=== PATIENT | female | born 2000 | race Caucasian/White ===

== ENCOUNTER 2020-10-14 11:41 | Outpatient (REF) | payer OTHER, SELFPAY ==
[2020-10-14 12:42] LABS: Hematocrit 43.1 % (37-47); Hemoglobin 14.3 g/dl (12.0-16.0); Mean Corpuscular HGB Conc 33.2 g/dl (31.0-35.0); Mean Corpuscular Hemoglobin 29.1 pg (27.0-33.0); Mean Corpuscular Volume 87.8 fL (80-98); Mean Platelet Volume 10.2 fL (9.4-12.3); Platelet Count 367 X10*3/uL (160-400); Red Blood Count 4.91 X10*6/uL (4.20-5.50); Red Cell Distribution Width 13.2 % (11.0-16.0); White Blood Count 11.4 X10*3/uL (4.8-10.8)
[2020-10-14 13:27] LABS: Alanine Aminotransferase 20 U/L (0-31); Albumin Level 4.1 g/dL (3.5-5.0); Alkaline Phosphatase 80 U/L (39-117); Anion Gap 13 (12-20); Aspartate Amino Transferase 15 U/L (5-31); Bilirubin Total 0.5 mg/dL (0.0-1.0); Blood Urea Nitrogen 9 mg/dL (9-16); Carbon Dioxide 25 mmol/L (22-29); Chloride 104 mmol/L (96-108); Cholesterol 178 mg/dL; Estimated Glomerular Filt Rate > 60; Glucose Fasting 84 mg/dL (60-99); HDL Cholesterol 45 mg/dL; LDL Cholesterol Calculated 102 mg/dl; Potassium 4.3 mmol/L (3.3-5.1); Sodium 138 mmol/L (135-145); Total Protein 6.8 g/dL (6.5-8.0); Triglycerides 158 mg/dL
[2020-10-14 13:38] LABS: TSH reflex Free T4 0.88 uIU/mL (0.32-4.0)
[2020-10-14 13:53] LABS: Estimated Average Glucose 97 mg/dL
== END 2020-10-14 11:42 | disposition home or self-care (01) ==
LOC: HO.LAB 11:41
PROVIDERS: PCP Physician Assistant; Visit Provider Physician Assistant
DX: I10 Essential (primary) hypertension (principal); E66.01 Morbid (severe) obesity due to excess calories; Z68.43 Body mass index [BMI] 50.0-59.9, adult; Z13.1 Encounter for screening for diabetes mellitus; Z13.220 Encounter for screening for lipoid disorders; Z13.29 Encounter for screening for other suspected endocrine disorder
CPT/HCPCS: 36415; 80053; 80061; 83036; 84443; 85027

== ENCOUNTER 2021-03-07 13:44 | Outpatient (REF) | payer OTHER, SELFPAY ==
[2021-03-08 06:08] LABS: CT PCR NOT DETECTED (Not Detect.); NG PCR NOT DETECTED (Not Detect.)
[2021-03-08 08:40] LABS: BV Int Neg Control Negative (Negative); BV Int Pos Control Positive (Positive)
== END 2021-03-07 13:45 | disposition home or self-care (01) ==
LOC: HO.LAB 13:44
PROVIDERS: Visit Provider Advanced Practice Midwife
DX: Z01.419 Encounter for gynecological examination (general) (routine) without abnormal findings (principal); R10.2 Pelvic and perineal pain; L70.9 Acne, unspecified; L68.0 Hirsutism; E66.01 Morbid (severe) obesity due to excess calories; Z68.43 Body mass index [BMI] 50.0-59.9, adult; Z20.2 Contact with and (suspected) exposure to infections with a predominantly sexual mode of transmission; Z79.899 Other long term (current) drug therapy
CPT/HCPCS: 87480; 87491; 87510; 87591; 87660; 88142

== ENCOUNTER → 2021-05-25 14:07 | Outpatient (BNVA) | payer OTHER, SELFPAY | PROVIDERS: Visit Provider Advanced Practice Midwife ==

== ENCOUNTER → 2021-06-21 08:58 | Outpatient (BNVA) | payer SELFPAY | PROVIDERS: PCP Physician Assistant; Referring Provider Physician Assistant; Visit Provider Nurse Practitioner Family | DX: G47.33 Obstructive sleep apnea (adult) (pediatric) (principal); G25.81 Restless legs syndrome; E66.01 Morbid (severe) obesity due to excess calories; Z68.43 Body mass index [BMI] 50.0-59.9, adult; Z91.013 Allergy to seafood; Z79.899 Other long term (current) drug therapy | CPT/HCPCS: 99202 ==

== ENCOUNTER 2021-09-01 10:53 | Outpatient (REF) | payer SELFPAY ==
[2021-09-01 13:16] LABS: Binax Internal Control QC Valid; Binax Now Covid-19 Ag Negative (Negative)
== END 2021-09-01 10:54 | disposition home or self-care (01) ==
LOC: HO.LAB 10:53
PROVIDERS: Visit Provider Internal Medicine
DX: Z20.822 Contact with and (suspected) exposure to COVID-19 (principal)
CPT/HCPCS: 36415; C9803

== ENCOUNTER 2022-10-10 15:51 | Outpatient (REF) | payer OTHER, SELFPAY ==
[2022-10-10 16:02] LABS: MANUAL DIFF FLAG NO
[2022-10-10 16:10] LABS: Basophils Absolute Auto 0.1 X10*3/uL (0.0-0.2); Basophils Percent Auto 0.7 % (0-2); Eosinophils Absolute Auto 0.3 X10*3/uL (0.0-0.4); Eosinophils Percent Auto 1.9 % (0-4); Hematocrit 41.7 % (37.0-47.0); Hemoglobin 14.2 g/dl (12.0-16.0); Imm Gran Abs Auto 0.08 X10*3/uL (0.00-0.03); Imm Gran Pct Auto 0.6 % (0.0-0.4); Lymphocytes Absolute Auto 4.2 X10*3/uL (1.2-4.9); Lymphocytes Percent Auto 30.6 % (20-40); Mean Corpuscular HGB Conc 34.1 g/dl (31.0-35.0); Monocytes Absolute Auto 0.9 X10*3/uL (0.1-1.2); Monocytes Percent Auto 6.8 % (2-11); Neutrophils Absolute Auto 8.2 x10*3/uL (2.0-8.3); Neutrophils Percent Auto 59.4 % (45-73); Platelet Count 373 X10*3/uL (160-400); Red Blood Count 4.74 X10*6/uL (4.20-5.50); Red Cell Distribution Width 12.5 % (11.0-16.0); White Blood Count 13.8 X10*3/uL (4.8-10.8)
[2022-10-10 16:39] LABS: Alanine Aminotransferase 18 U/L (0-31); Albumin Level 4.2 g/dL (3.5-5.0); Alkaline Phosphatase 74 U/L (39-117); Anion Gap 15 (12-20); Aspartate Amino Transferase 19 U/L (5-31); Bilirubin Total 0.4 mg/dL (0.0-1.0); Blood Urea Nitrogen 15 mg/dL (9-16); Calcium 9.4 mg/dL (8.4-10.2); Carbon Dioxide 23 mmol/L (22-29); Chloride 103 mmol/L (96-108); Cholesterol 180 mg/dL; Estimated Glomerular Filt Rate > 60; Glucose Fasting 113 mg/dL (60-99); Glucose Random 114 mg/dL (60-115); HDL Cholesterol 51 mg/dL; LDL Cholesterol Calculated 107 mg/dl; Potassium 3.8 mmol/L (3.3-5.1); Sodium 137 mmol/L (135-145); Triglycerides 112 mg/dL
[2022-10-10 16:53] LABS: TSH reflex Free T4 1.12 uIU/mL (0.32-4.0)
== END 2022-10-10 15:52 | disposition home or self-care (01) ==
LOC: HO.LAB 15:51
PROVIDERS: PCP Physician Assistant; Visit Provider Nurse Practitioner Family
DX: Z13.220 Encounter for screening for lipoid disorders (principal); Z13.1 Encounter for screening for diabetes mellitus; R42 Dizziness and giddiness
CPT/HCPCS: 36415; 80048; 80053; 80061; 84443; 85025

== ENCOUNTER → 2022-11-23 15:18 | Outpatient (REF) | payer OTHER, SELFPAY | LOC: HO.SL 15:18 | PROVIDERS: PCP Physician Assistant; Visit Provider Physician Assistant | DX: G47.33 Obstructive sleep apnea (adult) (pediatric) (principal) | CPT/HCPCS: 95806 ==

== ENCOUNTER 2023-10-27 21:38 | Emergency (ER) | payer OTHER, SELFPAY ==
--- NOTE | ~2023-10-27 | XR_ITS ---
EXAMINATION: XR CHEST CLINICAL INFORMATION: Chest pain COMPARISON: None available. TECHNIQUE: Frontal view of the chest was obtained. FINDINGS: No significant abnormality is noted involving the heart, lungs, mediastinum, bony thorax or soft tissues. XR/XR chest 1V IMPRESSION: Unremarkable examination.
--- NOTE | 2023-10-27 21:40 | ECG_ITS ---
Test Reason : CHEST PAIN Blood Pressure : / mmHG Vent. Rate : 076 BPM Atrial Rate : 076 BPM P-R Int : 132 ms QRS Dur : 074 ms QT Int : 370 ms P-R-T Axes : 048 033 031 degrees QTc Int : 416 ms Normal sinus rhythm Normal ECG When compared with ECG of 30-SEP-2015 21:54, No significant change was found Referred By: Generic ED Physician Electronically Signed By:CELESTINA HSIEH
[2023-10-27 21:51] VITALS: BP 131/79; PULSE 75; RESP 16; TEMP 36.9; O2SAT 99; BMI 48.2
[2023-10-27 22:09] LABS: MANUAL DIFF FLAG NO
[2023-10-27 22:10] LABS: Basophils Absolute Auto 0.1 X10*3/uL (0.0-0.2); Basophils Percent Auto 0.8 % (0-2); Eosinophils Absolute Auto 0.2 X10*3/uL (0.0-0.4); Eosinophils Percent Auto 1.1 % (0-4); Hematocrit 43.1 % (37.0-47.0); Hemoglobin 14.8 g/dl (12.0-16.0); Imm Gran Abs Auto 0.11 X10*3/uL (0.00-0.03); Imm Gran Pct Auto 0.8 % (0.0-0.4); Lymphocytes Absolute Auto 3.8 X10*3/uL (1.2-4.9); Lymphocytes Percent Auto 29.1 % (20-40); Mean Corpuscular HGB Conc 34.3 g/dl (31.0-35.0); Mean Corpuscular Hemoglobin 31.2 pg (27.0-33.0); Mean Corpuscular Volume 90.7 fL (80.0-98.0); Mean Platelet Volume 9.3 fL (9.4-12.3); Monocytes Absolute Auto 1.1 X10*3/uL (0.1-1.2); Monocytes Percent Auto 8.4 % (2-11); Neutrophils Absolute Auto 7.9 x10*3/uL (2.0-8.3); Neutrophils Percent Auto 59.8 % (45-73); Platelet Count 364 X10*3/uL (160-400); Red Blood Count 4.75 X10*6/uL (4.20-5.50); Red Cell Distribution Width 12.4 % (11.0-16.0); White Blood Count 13.1 X10*3/uL (4.8-10.8)
[2023-10-27 22:23] LABS: Alanine Aminotransferase 139 U/L (0-31); Albumin Level 4.1 g/dL (3.5-5.0); Alkaline Phosphatase 80 U/L (39-117); Anion Gap 12 (12-20); Aspartate Amino Transferase 68 U/L (5-31); Bilirubin Total 0.2 mg/dL (0.0-1.0); Blood Urea Nitrogen 16 mg/dL (9-16); Calcium 9.5 mg/dL (8.4-10.2); Carbon Dioxide 24 mmol/L (22-29); Chloride 105 mmol/L (96-108); Creatinine Clr Calc Pharmacy 160.3; Estimated Glomerular Filt Rate > 60; Glucose Random 84 mg/dL (60-115); Potassium 4.1 mmol/L (3.3-5.1); Sodium 137 mmol/L (135-145); Total Protein 7.3 g/dL (6.5-8.0)
[2023-10-27 22:31] LABS: Troponin-I High Sensitivity < 2.7 ng/L (<3.5-17.0)
--- NOTE | 2023-10-27 23:51 | ED_ITS ---
HPI - Chest Pain General Chief Complaint: Chest Pain Stated Complaint: chest pain,sob Time Seen by Provider: 10/27/23 23:48 Source: patient Mode of arrival: ambulatory Limitations: no limitations History of Present Illness HPI narrative: Patient history of bipolar disorder anxiety depression no history of coronary artery disease in the family nonsmoker not on any control pills complaining of pain in the left side of the chest for last 24 hours off and on sharp in character increases on movement no shortness of breath no leg swelling or calf pain no cough Related Data Previous Rx's Medication Instructions Recorded venlafaxine 75 mg capsule,extended 75 mg PO QAM 90 days #90 caps 11/09/22 release 24 hr oxcarbazepine 300 mg tablet 300 mg PO BID 90 days #180 tabs 09/25/23 venlafaxine 150 mg 150 mg PO DAILY 90 days #90 caps 09/25/23 capsule,extended release 24 hr Allergies Allergy/AdvReac Type Severity Reaction Status Date / Time SHELLFISH Allergy Unknown SWELLING Uncoded 10/27/23 21:57 Review of Systems 2 Review of Systems: Yes all other systems are reviewed and are negative [facility] Past Medical History Medical History Obesity, morbid, BMI 50 or higher Surgical History No history of previous surgery Family History Family History Father High blood pressure Mother Fibromyalgia Social History Social History Household Members: Significant Other Housing: House Alcohol intake: current Alcohol intake frequency: a few times a month Patient Tobacco Use Status: Never used Tobacco e-Cigarette/Vaping Use: Never Used Advance Directives: No Advance Directives Information Provided: No Current occupational status: employed Current occupation: [employer] Gender identity: Female Cognitive needs: No Hearing needs: No Vision needs: No Physical Exam 2 Vital Signs: Vital Signs: Last Vital Signs Temp 98.4 F 10/27/23 21:51 Pulse 75 10/27/23 21:51 Resp 16 10/27/23 21:51 BP 131/79 10/27/23 21:51 Pulse Ox 99 10/27/23 21:51 O2 Del Method Room Air 10/27/23 21:51 BMI result Body Mass Index 48.2 Appearance: Alert. Oriented X3. No acute distress. Obese ENT: Pharynx normal. Oral Mucosa moist Neck: Normal inspection. Neck supple. CVS: Normal heart rate and rhythm. Pulses normal. Left chest wall tenderness+ Respiratory: No respiratory distress. Equal air entry bilateral, no wheezing/rales/rhonchi Abdomen: Soft and nontender. Bowel sounds are present, Skin: Skin warm and dry. Normal skin color. Normal skin turgor. Extremities: No lower extremity edema. No calf tenderness Neuro: Oriented X 3. Medical Decision Making Medical Decision Making [facility] Narrative: Patient with low risk for ACS normal EKG normal cardiac enzymes atypical chest pain likely musculoskeletal Differential Diagnosis Differential Diagnoses: The differential diagnosis associated with the presentation includes ACS/costochondritis/PE/pneumonia/atypical chest pain Lab Data [facility] Lab Attestation statement: I reviewed the patient's lab results. 10/27/23 22:04 10/27/23 22:04 Labs: Lab Results 10/27/23 Range/Units 22:04 WBC 13.1 H (4.8-10.8) X10*3/uL RBC 4.75 (4.20-5.50) X10*6/uL Hgb 14.8 (12.0-16.0) g/dl Hct 43.1 (37.0-47.0) % MCV 90.7 (80.0-98.0) fL MCH 31.2 (27.0-33.0) pg MCHC 34.3 (31.0-35.0) g/dl RDW 12.4 (11.0-16.0) % Plt Count 364 (160-400) X10*3/uL MPV 9.3 L (9.4-12.3) fL Immature Gran % (Auto) 0.8 H (0.0-0.4) % Neut % (Auto) 59.8 (45-73) % Lymph % (Auto) 29.1 (20-40) % [place] % (Auto) 8.4 (2-11) % Eos % (Auto) 1.1 (0-4) % Baso % (Auto) 0.8 (0-2) % Lymph # (Auto) 3.8 (1.2-4.9) X10*3/uL [place] # (Auto) 1.1 (0.1-1.2) X10*3/uL Eos # (Auto) 0.2 (0.0-0.4) X10*3/uL Baso # (Auto) 0.1 (0.0-0.2) X10*3/uL Abs Immat Gran (auto) 0.11 H (0.00-0.03) X10*3/uL Absolute Neuts (auto) 7.9 (2.0-8.3) x10*3/uL Absolute Nucleated RBC 0.000 (0.0-0.012) X10*3/uL Nucleated RBC % (auto) 0.0 (0.0-0.2) /100WBC Sodium 137 (135-145) mmol/L Potassium 4.1 (3.3-5.1) mmol/L Chloride 105 (96-108) mmol/L Carbon Dioxide 24 (22-29) mmol/L Anion Gap 12 (12-20) BUN 16 (9-16) mg/dL Creatinine 0.76 (0.5-1.4) mg/dL Estim Creat Clear Calc 160.3 Estimated GFR > 60 Random Glucose 84 (60-115) mg/dL Calcium 9.5 (8.4-10.2) mg/dL Total Bilirubin 0.2 (0.0-1.0) mg/dL AST 68 H (5-31) U/L ALT 139 H (0-31) U/L Alkaline Phosphatase 80 (39-117) U/L Troponin I High Sens < 2.7 (<3.5-17.0) ng/L Total Protein 7.3 (6.5-8.0) g/dL Albumin 4.1 (3.5-5.0) g/dL Independent Interpretation I performed an independent interpretation of an: EKG Interpretation: Normal sinus rhythm heart rate 76 beats per minute normal interval normal axis no acute ST T wave changes no acute ischemia Discharge Plan Discharge Clinical Impression: Atypical chest pain Patient Disposition: Home, Self-Care Instructions: Noncardiac Chest Pain (ED) Additional Instructions: Your chest pain is likely musculoskeletal Take Tylenol/Motrin for pain Follow with PCP if any concerns Prescriptions: No Action oxcarbazepine 300 mg tablet 300 mg PO BID 90 Days Qty: 180 2RF venlafaxine 150 mg capsule,extended release 24hr 150 mg PO DAILY 90 Days Qty: 90 2RF venlafaxine 75 mg capsule,extended release 24hr 75 mg PO QAM 90 Days Qty: 90 2RF Rx Instructions: 1 weeks worth needs appointment Interventions: ED Discharge Assessment Last Done: 10/28/23 00:31 Discharge Date/Time: 10/28/23 00:32
--- NOTE | 2023-10-28 00:30 | PC.NURSE ---
pt left without this rn obgyn and without discharge papers. provider aware.
== END 2023-10-28 00:32 | disposition home or self-care (01) ==
PROVIDERS: Emergency Provider Internal Medicine; PCP Physician Assistant
DX: R07.89 Other chest pain (principal); F41.9 Anxiety disorder, unspecified; Z79.899 Other long term (current) drug therapy
CPT/HCPCS: 36415; 71045; 80053; 84484; 85025; 93005; 99283

== ENCOUNTER → 2023-10-27 21:40 | Outpatient (BNV) | payer OTHER, SELFPAY | PROVIDERS: Emergency Provider Internal Medicine; PCP Physician Assistant; Visit Provider Internal Medicine | DX: R07.9 Chest pain, unspecified (principal) | CPT/HCPCS: 93010 ==

== ENCOUNTER 2024-02-14 08:04 | Outpatient (AMB) | payer OTHER, SELFPAY ==
[2024-02-14 08:07] VITALS: BP 128/80; PULSE 81; TEMP 36.4; O2SAT 98
--- NOTE | 2024-02-14 08:07 | AM.OFFWIN_ITS ---
Intake Vital Signs 02/14/24 08:07 Height 5 ft 6 in BP 128/80 Blood Pressure Location Rt brachial Position Sitting Pulse 81 Pulse Source Pulse Oximeter Temp 97.5 F Temp Source Oral Pulse Oximetry (%) 98 Oxygen Delivery Method Room Air Intake Visit Reasons: EP Severe Left ear pain, sore throat Intake Note: pt is here for severe left ear pain has been sick for 2 weeks and the ear pain just started Patient Tobacco Use Status: Never used Tobacco Allergies SHELLFISH Allergy (Unknown, Uncoded 02/14/24 08:07) SWELLING Do you need a note to return to daycare/school/sports/work: No HPI HPI Comments History of Present Illness Details Patient is a 23-year-old female complaining of left ear pain x1 week. She states she did have a cold a couple of weeks ago and she is feeling better overall but she is stuck with this residual left ear pain and reduced hearing. She states she took some Excedrin last night which did not really help. She also endorses a mild sore throat and seasonal allergies but states her allergies have not really bothered her this year. She denies any fever. [facility] Medical History Obesity, morbid, BMI 50 or higher Surgical History No history of previous surgery Family History Father High blood pressure Mother Fibromyalgia Social History Household Members: Significant Other Housing: House Alcohol intake: current Alcohol intake frequency: a few times a month Patient Tobacco Use Status: Never used Tobacco e-Cigarette/Vaping Use: Never Used Current occupational status: employed Current occupation: [employer] Gender identity: Female Cognitive needs: No Hearing needs: No Vision needs: No Female Reproductive History Menstrual Age of Menarche: 9 Review of Systems Const All systems reviewed & are unremarkable except as noted in HPI and below Physical Exam Vital Signs: Last Vital Signs Temp 97.5 F 02/14/24 08:07 Pulse 81 02/14/24 08:07 BP 128/80 02/14/24 08:07 Pulse Ox 98 02/14/24 08:07 Oxygen Delivery Method Room Air 06/20/24 08:07 Const General: cooperative, healthy appearing, comfortable and no acute distress Orientation/consciousness: patient oriented x3 Limitations: no limitations HEENT Head: Yes normal to inspection Ears: external ears normal and TM abnormal (bilaterally) dull, erythematous and with loss of landmarks General nose exam: Normal external nose present, Normal nares present and No nasal discharge present Face and sinus: Yes normal facial exam and Yes sinuses nontender Mouth: Normal oral and palatal mucosa present and moist mucous membranes Throat: Yes tonsils normal (Slightly enlarged), Yes uvula midline and Yes posterior oropharynx abnormal (Erythematous) Eyes General: appearance normal, both eyes and all related structures Neck Neck: Yes normal visual inspection Resp Effort & Inspection: normal respiratory effort, able to speak in complete sentences, Actively coughing, no respiratory distress, not tachypneic, no tripod positioning and no use of accessory muscles Auscultation: clear to auscultation bilaterally Cardio Rate: regular rate Rhythm: regular rhythm Heart sounds: normal S1 and S2 Skin General skin exam: no rashes or lesions noted Neuro General: patient oriented x3 Extrem General: Yes normal to inspection and Yes no clubbing, cyanosis or edema Assessment & Plan Assessment & Plan (1) Otitis media: Code(s): H66.90 - Otitis media, unspecified, unspecified ear Qualifiers: Otitis media type: unspecified Laterality: left Qualified Code(s): H66.92 - Otitis media, unspecified, left ear Plan: abx sent to pharmacy; recommended if reduced hearing continues to follow up with hearing test Plan See above Medications: New amoxicillin 875 mg PO Q12H 10 tabs 0RF Coding Level of Care Code Est Pt Level 3 (90528) Diagnoses Left otitis media, unspecified otitis media type H66.92 Otitis media type: unspecified Laterality: left
== END 2024-02-14 08:46 | disposition home or self-care (01) ==
PROVIDERS: PCP Physician Assistant; Visit Provider Physician Assistant
DX: H66.92 Otitis media, unspecified, left ear (principal)
CPT/HCPCS: 99213

== ENCOUNTER 2024-03-01 09:08 | Outpatient (AMB) | payer OTHER, SELFPAY ==
--- NOTE | 2024-03-01 09:17 | MHC.OFFWIV ---
Intake Vital Signs 03/01/24 09:19 Height 5 ft 6 in Weight 311 lb BMI 50.2 BP 118/82 Blood Pressure Location Rt radial Position Sitting Pulse 80 Pulse Source Pulse Oximeter Temp 98.1 F Temp Source Oral Pulse Oximetry (%) 98 Oxygen Delivery Method Room Air Intake Visit Reasons: EP fell on rt foot/pain in foot Intake Note: pt here c/o RT foot pain due to fall on Patient Tobacco Use Status: Never used Tobacco Allergies SHELLFISH Allergy (Unknown, Uncoded 03/01/24 09:19) SWELLING Do you need a note to return to daycare/school/sports/work: No HPI EP fell on rt foot/pain in foot HPI Details Patient is a 23-year-old female comes to the walk-in clinic complaining of pain to the right foot after she fell 2 days ago when she slipped on dirt, which rolled her right ankle underneath her, and she fell on her foot. She reports the symptoms increased since then, as she has been continuing to work which requires ambulating. She did take Aleve this morning for the pain. She did not notice any apparent swelling, or deformity. She reports no weakness, numbness or tingling to the extremity. She also did scrape up her left elbow when she fell, but reports no issues with use of the arm. [facility] Medical History Obesity, morbid, BMI 50 or higher Surgical History No history of previous surgery Family History Father High blood pressure Mother Fibromyalgia Social History Household Members: Significant Other Housing: House Alcohol intake: current Alcohol intake frequency: a few times a month Patient Tobacco Use Status: Never used Tobacco e-Cigarette/Vaping Use: Never Used Current occupational status: employed Current occupation: [employer] Gender identity: Female Cognitive needs: No Hearing needs: No Vision needs: No Female Reproductive History Menstrual Age of Menarche: 9 Review of Systems Const All systems reviewed & are unremarkable except as noted in HPI and below Physical Exam Vital Signs: Last Vital Signs Temp 98.1 F 03/01/24 09:19 Pulse 80 03/01/24 09:19 BP 118/82 03/01/24 09:19 Pulse Ox 98 03/01/24 09:19 Oxygen Delivery Method Room Air 03/01/24 09:19 BMI result Body Mass Index 50.2 Extrem Other: Right ankle with mild edema to the lateral malleolar aspect of the right ankle, and anterior midfoot tenderness to palpation. No gross ecchymosis, abrasions or lacerations overlying. Patient able to tolerate weight with ambulation very mildly antalgic gait. Full range of motion strength to right ankle and foot, neurovascularly intact distally Assessment & Plan Assessment & Plan (1) Right ankle sprain: Code(s): S93.401A - Sprain of unspecified ligament of right ankle, initial encounter Qualifiers: Encounter type: initial encounter Involved ligament of ankle: anterior talofibular ligament Qualified Code(s): S93.491A - Sprain of other ligament of right ankle, initial encounter (2) Abrasion of left elbow: Code(s): S50.312A - Abrasion of left elbow, initial encounter Qualifiers: Encounter type: initial encounter Qualified Code(s): S50.312A - Abrasion of left elbow, initial encounter Plan Patient with apparent ankle sprain and foot sprain after twisting mechanism of injury, and mild crush due to her body weight. She was put into Alvin wrap and air cast to the right foot and ankle. I advised that she elevate, rest, ice every 2-4 hours, use the compression when not icing, and take [id number] anti-inflammatories for a few days to reduce the swelling and pain. She should use the Aircast with ambulation. She can weightbear as tolerated otherwise. She should follow up with primary care or orthopedist if symptoms persist after 2 weeks or so. Patient aware of this, as well as her mother who was present. Orders: Orders XR ankle RT 2V 03/01/24 M79.673 - Pain in unspecified foot XR foot RT min 3V 03/01/24 M79.673 - Pain in unspecified foot Coding Level of Care Code Est Pt Level 4 (54183) Diagnoses Sprain of anterior talofibular ligament of right ankle, initial encounter S93.491A Encounter type: initial encounter Involved ligament of ankle: anterior talofibular ligament Abrasion of left elbow, initial encounter S50.312A Encounter type: initial encounter
[2024-03-01 09:19] VITALS: BP 118/82; PULSE 80; TEMP 36.7; O2SAT 98; BMI 50.2
== END 2024-03-01 10:31 | disposition home or self-care (01) ==
PROVIDERS: PCP Physician Assistant; Visit Provider Physician Assistant Medical
DX: S93.491A Sprain of other ligament of right ankle, initial encounter (principal); S50.312A Abrasion of left elbow, initial encounter
CPT/HCPCS: 99051; 99214

== ENCOUNTER 2024-03-01 09:57 | Outpatient (REF) | payer OTHER, SELFPAY ==
--- NOTE | ~2024-03-01 | XR_ITS ---
EXAMINATION: XR ankle RT 2V, XR foot RT min 3V CLINICAL INFORMATION: Reason for Exam M79.673 - Pain in unspecified foot COMPARISON: None. TECHNIQUE: AP, lateral, and oblique views of the foot and 2 views of the ankle FINDINGS: No acute fracture or dislocation. Mild osteoarthritis of the foot with Achilles tendon enthesopathy, plantar calcaneal spurring and a small dorsal midfoot osteophyte. Soft tissue swelling about the foot and ankle. No tibiotalar joint effusion. XR/XR foot RT min 3V IMPRESSION: 1. Soft tissue swelling about the foot and ankle without appreciable underlying acute fracture or dislocation. 2. Mild osteoarthritis of the foot.
--- NOTE | ~2024-03-01 | XR_ITS ---
EXAMINATION: XR ankle RT 2V, XR foot RT min 3V CLINICAL INFORMATION: Reason for Exam M79.673 - Pain in unspecified foot COMPARISON: None. TECHNIQUE: AP, lateral, and oblique views of the foot and 2 views of the ankle FINDINGS: No acute fracture or dislocation. Mild osteoarthritis of the foot with Achilles tendon enthesopathy, plantar calcaneal spurring and a small dorsal midfoot osteophyte. Soft tissue swelling about the foot and ankle. No tibiotalar joint effusion. XR/XR ankle RT 2V IMPRESSION: 1. Soft tissue swelling about the foot and ankle without appreciable underlying acute fracture or dislocation. 2. Mild osteoarthritis of the foot.
== END 2024-03-01 09:58 | disposition home or self-care (01) ==
LOC: HO.HMGCX 09:57
PROVIDERS: Visit Provider Physician Assistant Medical
DX: M79.671 Pain in right foot (principal)
CPT/HCPCS: 73600; 73630

== ENCOUNTER 2024-03-19 21:35 | Emergency (ER) | payer OTHER, SELFPAY ==
[2024-03-19 21:47] VITALS: BP 128/75; PULSE 95; RESP 18; TEMP 36.9; O2SAT 97; BMI 48.4
[2024-03-19 22:04] LABS: MANUAL DIFF FLAG NO
[2024-03-19 22:05] LABS: Basophils Absolute Auto 0.1 X10*3/uL (0.0-0.2); Basophils Percent Auto 0.5 % (0-2); Eosinophils Percent Auto 0.3 % (0-4); Hematocrit 42.8 % (37.0-47.0); Hemoglobin 14.8 g/dl (12.0-16.0); Imm Gran Abs Auto 0.04 X10*3/uL (0.00-0.03); Imm Gran Pct Auto 0.4 % (0.0-0.4); Lymphocytes Absolute Auto 1.3 X10*3/uL (1.2-4.9); Lymphocytes Percent Auto 12.9 % (20-40); Mean Corpuscular HGB Conc 34.6 g/dl (31.0-35.0); Mean Corpuscular Hemoglobin 31.5 pg (27.0-33.0); Mean Corpuscular Volume 91.1 fL (80.0-98.0); Mean Platelet Volume 9.6 fL (9.4-12.3); Monocytes Absolute Auto 1.1 X10*3/uL (0.1-1.2); Monocytes Percent Auto 10.3 % (2-11); Neutrophils Absolute Auto 7.8 x10*3/uL (2.0-8.3); Neutrophils Percent Auto 75.6 % (45-73); Platelet Count 308 X10*3/uL (160-400); Red Cell Distribution Width 12.5 % (11.0-16.0); White Blood Count 10.3 X10*3/uL (4.8-10.8)
[2024-03-19 22:24] LABS: Alanine Aminotransferase 37 U/L (0-31); Albumin Level 4.2 g/dL (3.5-5.0); Alkaline Phosphatase 75 U/L (39-117); Anion Gap 15 (12-20); Aspartate Amino Transferase 28 U/L (5-31); Bilirubin Total 0.9 mg/dL (0.0-1.0); Blood Urea Nitrogen 11 mg/dL (9-16); Calcium 8.9 mg/dL (8.4-10.2); Carbon Dioxide 22 mmol/L (22-29); Chloride 105 mmol/L (96-108); Creatinine Clr Calc Pharmacy 169.7; Estimated Glomerular Filt Rate > 60; Glucose Random 119 mg/dL (60-115); Lipase 14 U/L (8-78); Potassium 3.5 mmol/L (3.3-5.1); Sodium 138 mmol/L (135-145); Total Protein 7.3 g/dL (6.5-8.0)
[2024-03-20 00:03] VITALS: BP 114/65; PULSE 88; RESP 18; TEMP 36.8; O2SAT 100
--- NOTE | 2024-03-20 00:58 | ED_ITS ---
HPI - Abdominal Pain General Chief Complaint: Abdominal Pain Stated Complaint: vomiting, abd pain and back pain Time Seen by Provider: 03/20/24 00:57 Source: patient Mode of arrival: ambulatory Limitations: no limitations History of Present Illness ED Provider: bereket LOPEZ narrative: Patient is 23 years old with history of anxiety and depression complaining of 3- 4 days of diffuse abdominal pain cramping with nausea vomiting and diarrhea vomiting about 3 4 times a day and same number of watery stool no fever no chills no upper respiratory symptoms Related Data Previous Rx's ?Medication ?Instructions ?Recorded oxcarbazepine 300 mg tablet 300 mg PO BID 90 days #180 tabs 09/25/23 venlafaxine 150 mg 150 mg PO DAILY 90 days #90 caps 09/25/23 capsule,extended release 24 hr venlafaxine 75 mg capsule,extended 75 mg PO QAM 90 days #90 caps 03/10/24 release 24 hr dicyclomine 20 mg tablet 20 mg PO TID PRN Abdominal 03/20/24 Discomfort #20 tabs ondansetron 4 mg disintegrating 4 mg PO Q6-8H PRN nausea and 03/20/24 tablet vomiting #10 tabs Allergies Allergy/AdvReac Type Severity Reaction Status Date / Time SHELLFISH Allergy Unknown SWELLING Uncoded 03/19/24 21:49 Review of Systems Review of Systems Yes all other systems are reviewed and are negative PMF Past Medical History Medical History Obesity, morbid, BMI 50 or higher Surgical History No history of previous surgery Family History Family History Father High blood pressure Mother Fibromyalgia Social History Social History Household Members: Significant Other Housing: House Alcohol intake: current Alcohol intake frequency: a few times a month Patient Tobacco Use Status: Never used Tobacco e-Cigarette/Vaping Use: Never Used Advance Directives: No Advance Directives Information Provided: No Do you have a plan to hurt others: No Plan Current occupational status: employed Current occupation: [employer] Gender identity: Female Cognitive needs: No Hearing needs: No Vision needs: No Physical Exam ED Vital Signs: Vital Signs - 24 hr 03/19/24 21:47 03/20/24 00:03 03/20/24 02:11 Temperature 98.4 F 98.3 F 98.3 F Pulse Rate 95 88 79 Respiratory Rate 18 18 18 Blood Pressure 128/75 114/65 118/73 Pulse Oximetry 97 100 97 Oxygen Delivery Method Room Air Room Air Room Air BMI result Body Mass Index 48.4 Appearance: Alert. Oriented X3. No acute distress. Obese Eyes: PERRLA, No Nystagmus ENT: Pharynx normal. Oral Mucosa moist Neck: Normal inspection. Neck supple. CVS: Normal heart rate and rhythm. Pulses normal. Respiratory: No respiratory distress. Equal air entry bilateral, no wheezing/rales/rhonchi Abdomen: Soft and nontender. Bowel sounds are present, no mass palpable, no CVA tenderness Skin: Skin warm and dry. Normal skin color. Normal skin turgor. Extremities: No lower extremity edema. No calf tenderness Neuro: Oriented X 3. No motor deficit. No sensory deficit.No cerebellar signs , cranial nerves II-XII intact Medical Decision Making Medical Decision Making [facility] Narrative: Patient likely with IBS with similar symptoms in the past feel better after dicyclomine will discharge patient home dicyclomine and ondansetron Differential Diagnosis Differential Diagnoses: The differential diagnosis associated with the presentation includes Irritable bowel syndrome/UTI/viral gastroenteritis Lab Data [facility] Lab Attestation statement: I reviewed the patient's lab results. 03/19/24 22:00 03/19/24 22:00 Labs: Lab Results 03/19/24 03/20/24 Range/Units 22:00 01:40 WBC 10.3 (4.8-10.8) X10*3/uL RBC 4.70 (4.20-5.50) X10*6/uL Hgb 14.8 (12.0-16.0) g/dl Hct 42.8 (37.0-47.0) % MCV 91.1 (80.0-98.0) fL MCH 31.5 (27.0-33.0) pg MCHC 34.6 (31.0-35.0) g/dl RDW 12.5 (11.0-16.0) % Plt Count 308 (160-400) X10*3/uL MPV 9.6 (9.4-12.3) fL Immature Gran % (Auto) 0.4 (0.0-0.4) % Neut % (Auto) 75.6 H (45-73) % Lymph % (Auto) 12.9 L (20-40) % [place] % (Auto) 10.3 (2-11) % Eos % (Auto) 0.3 (0-4) % Baso % (Auto) 0.5 (0-2) % Lymph # (Auto) 1.3 (1.2-4.9) X10*3/uL [place] # (Auto) 1.1 (0.1-1.2) X10*3/uL Eos # (Auto) 0.0 (0.0-0.4) X10*3/uL Baso # (Auto) 0.1 (0.0-0.2) X10*3/uL Abs Immat Gran (auto) 0.04 H (0.00-0.03) X10*3/uL Absolute Neuts (auto) 7.8 (2.0-8.3) x10*3/uL Absolute Nucleated RBC 0.000 (0.0-0.012) X10*3/uL Nucleated RBC % (auto) 0.0 (0.0-0.2) /100WBC Sodium 138 (135-145) mmol/L Potassium 3.5 (3.3-5.1) mmol/L Chloride 105 (96-108) mmol/L Carbon Dioxide 22 (22-29) mmol/L Anion Gap 15 (12-20) BUN 11 (9-16) mg/dL Creatinine 0.72 (0.5-1.4) mg/dL Estim Creat Clear Calc 169.7 Estimated GFR > 60 Random Glucose 119 H (60-115) mg/dL Calcium 8.9 D (8.4-10.2) mg/dL Total Bilirubin 0.9 (0.0-1.0) mg/dL AST 28 (5-31) U/L ALT 37 H (0-31) U/L Alkaline Phosphatase 75 (39-117) U/L Total Protein 7.3 (6.5-8.0) g/dL Albumin 4.2 (3.5-5.0) g/dL Lipase 14 (8-78) U/L Urine Color Dark Yellow Urine Appearance Cloudy Urine pH 5.5 (5.0-9.0) Ur Specific [place] 1.015 (1.005-1.025) Urine Protein Negative (Neg-Trace) mg/dL Urine Glucose (UA) Negative (Negative) mg/dL Urine Ketones Negative (Negative) mg/dL Urine Blood Negative (Negative) Urine Nitrite Negative (Negative) Ur Leukocyte Esterase Negative (Negative) Urine RBC 0-2 (0-2) /HPF Urine WBC 0-5 (0-5) /HPF Ur Squamous Epith Cells >20 (0-2) /HPF Urine Bacteria 2+ (None Seen) Hyaline Casts 0-2 (0-2) /LPF Urine Test NEGATIVE (NEGATIVE) Discharge Plan Discharge Clinical Impression: Irritable bowel syndrome Patient Disposition: Home, Self-Care Instructions: Irritable Bowel Syndrome (ED) Additional Instructions: Drink plenty of fluids Medication for abdominal cramps and pain Continue medication for anxiety and depression follow with your PCP Prescriptions: New dicyclomine 20 mg tablet 20 mg PO TID PRN (Reason: Abdominal Discomfort) Qty: 20 0RF ondansetron 4 mg tablet,disintegrating 4 mg PO Q6-8H PRN (Reason: nausea and vomiting) Qty: 10 0RF No Action oxcarbazepine 300 mg tablet 300 mg PO BID 90 Days Qty: 180 2RF venlafaxine 150 mg capsule,extended release 24hr 150 mg PO DAILY 90 Days Qty: 90 2RF venlafaxine 75 mg capsule,extended release 24hr 75 mg PO QAM 90 Days Qty: 90 2RF Rx Instructions: 1 weeks worth needs appointment Print Language: Nepali
[2024-03-20 01:54] LABS: Appearance Urine Cloudy; Color Urine Dark Yellow; Glucose Urine UA Negative (Negative); Leukocyte Esterase Urine Negative (Negative); Nitrite Urine Negative (Negative); PH 5.5 (5.0-9.0); Specific Gravity - Urine 1.015 (1.005-1.025); Urine Blood Negative (Negative); Urine Ketones Negative (Negative); Urine Protein Negative (Neg-Trace)
[2024-03-20 01:56] LABS: Bacteria Urine 2+ (None Seen); Hyaline Casts Urine 0-2 /LPF (0-2); RBC Urine 0-2 /HPF (0-2); Squamous Epithelial Cell Urine >20 /HPF (0-2); WBC Urine 0-5 /HPF (0-5)
[2024-03-20 02:00] LABS: UPreg QC Valid YES; Urine Pregnancy NEGATIVE (NEGATIVE)
[2024-03-20 02:11] VITALS: BP 118/73; PULSE 79; RESP 18; TEMP 36.8; O2SAT 97
[2024-03-20] MEDS: Ondansetron ODT 4 MG TAB.RAPDIS TRANSLINGU (02:27)
[2024-03-20] MEDS: Dicyclomine HCl 10 MG CAPSULE 20 MG PO (02:27)
[2024-03-20 02:29] VITALS: BP 118/73; PULSE 79; RESP 18; TEMP 36.8; O2SAT 97
== END 2024-03-20 02:29 | disposition home or self-care (01) ==
PROVIDERS: Emergency Provider Internal Medicine; PCP Physician Assistant
DX: K58.9 Irritable bowel syndrome, unspecified (principal); F41.9 Anxiety disorder, unspecified; F33.1 Major depressive disorder, recurrent, moderate; Z79.899 Other long term (current) drug therapy
CPT/HCPCS: 36415; 80053; 81001; 81025; 83690; 85025; 99283; 99284

== ENCOUNTER 2024-08-29 10:02 | Outpatient (REF) | payer OTHER, SELFPAY ==
[2024-08-30 04:07] LABS: HBS Num1 0.71 mIU/mL (0-7.99); ~Hepatitis B Surface Antibody NONREACTIVE (Nonreactive)
[2024-09-02 00:09] LABS: Mumps Virus IgG Antibody <9.00 AU/mL; Rubella IgG Antibody <0.90 Index
[2024-09-02 03:08] LABS: Varicella IgG Antibody <1.00 S/CO
== END 2024-08-29 10:03 | disposition home or self-care (01) ==
LOC: HO.HMGCLDS 10:02
PROVIDERS: PCP Physician Assistant; Visit Provider Physician Assistant
DX: Z23 Encounter for immunization (principal); Z78.9 Other specified health status
CPT/HCPCS: 36415; 86706; 86735; 86762; 86765; 86787

== ENCOUNTER 2024-11-12 08:49 | Outpatient (RCR) | payer OTHER, SELFPAY | END 2024-11-12 23:59 | disposition home or self-care (01) | LOC: HO.PHPA 08:49 | PROVIDERS: Visit Provider Psychiatry & Neurology Psychiatry | DX: F41.9 Anxiety disorder, unspecified (principal); F32.A Depression, unspecified ==